=== PATIENT | female | born 1940 | race Caucasian/White ===

== ENCOUNTER 2020-10-23 12:51 | Emergency (ER) | payer OTHER ==
[~2020-10-23] VITALS: Ht 152.4 cm; Wt 68.0 kg
[~2020-10-23 12:51] MED LIST: ANTIVERT25 MG PO; ASPIR 8181 MG PO; ESSENTIAL DAIL1 EACH PO; IBUPROFEN 200200 M1 PO; KLOR-CON 1010 MEQ PO; LOVAZA1000 MG PO; MUCINEX TA600 MG/TA2 PO; ROBITUSSIN10 MG; ROBITUSSIN100 MG/53 PO; SYSTANE ULTRA 010 ML OPHTHALMIC; TRICOR145 MG PO; VITAMIN D1000 UNI1 PO; ZESTORETIC 20-1 EAC2 PO; ZOCOR20 MG PO
[2020-10-23 13:12] LABS: ABSOLUTE NEUTROPHILS 3.1 thou/uL (1.4-8.2); BASOPHILS 0.5 % (0.0-2.0); EOSINOPHILS 0.6 % (0.0-3.0); HEMATOCRIT 42.5 % (37.0-47.0); HEMOGLOBIN 14.2 gm/dL (12.0-15.0); LYMPHOCYTES 23.7 % (24.0-44.0); MCH 31.8 pg (26.0-34.0); MCHC 33.4 g/dL (28.0-37.0); MCV 95.2 fL (80.0-100.0); MONOCYTES 15.4 % (1.0-8.0); PLATELET COUNT 270 thou/uL (150-400); POLYS 59.8 % (36.0-66.0); RBC 4.47 mil/uL (4.20-5.00); RDW 13.5 % (10.5-14.5); WBC 5.1 thou/uL (4.0-11.0)
[2020-10-23 13:14] LABS: POTASSIUM 3.9 mmol/L (3.5-5.1)
[2020-10-23 13:20] LABS: ALBUMIN 3.4 g/dL (3.4-5.0); TOTAL BILIRUBIN 0.5 mg/dL (0.2-1.0); TOTAL PROTEIN 7.8 g/dL (6.4-8.2)
[2020-10-23 13:23] LABS: URINE BILIRUBIN NEGATIVE (Negative); URINE BLOOD NEGATIVE (Negative); URINE CLARITY CLEAR; URINE COLOR YELLOW; URINE GLUCOSE-RANDOM* NEGATIVE (Negative); URINE KETONES NEGATIVE (Negative); URINE LEUKOCYTES-REFLEX NEGATIVE (Negative); URINE NITRITE-REFLEX NEGATIVE (Negative); URINE PROTEIN (DIPSTICK) NEGATIVE (Negative); URINE SPECIFIC GRAVITY 1.015 (1.005-1.035); URINE UROBILINOGEN 0.2 E.U./dl (0.2-1.0)
[2020-10-23 16:00] VITALS: BP 137/71
== END 2020-10-23 17:05 | disposition home or self-care (01) ==
LOC: ER 12:51
PROVIDERS: Emergency Medicine
DX: R09.02 Hypoxemia (principal); I10 Essential (primary) hypertension; E78.5 Hyperlipidemia, unspecified; Z79.82 Long term (current) use of aspirin; Z79.899 Other long term (current) drug therapy; Z79.1 Long term (current) use of non-steroidal anti-inflammatories (NSAID)

== ENCOUNTER 2020-10-26 03:51 | Emergency (ER) | payer OTHER ==
[~2020-10-26] VITALS: Ht 165.1 cm; Wt 54.9 kg
[2020-10-26 04:44] LABS: POTASSIUM 3.8 mmol/L (3.5-5.1)
[2020-10-26 04:50] LABS: ALBUMIN 3.4 g/dL (3.4-5.0); TOTAL BILIRUBIN 0.6 mg/dL (0.2-1.0); TOTAL PROTEIN 7.4 g/dL (6.4-8.2)
[2020-10-26 05:06] LABS: ABSOLUTE NEUTROPHILS 2.1 thou/uL (1.4-8.2); BASOPHILS 0.8 % (0.0-2.0); EOSINOPHILS 0.2 % (0.0-3.0); HEMOGLOBIN 14.9 gm/dL (12.0-15.0); LYMPHOCYTES 26.1 % (24.0-44.0); MCH 32.1 pg (26.0-34.0); MCHC 33.8 g/dL (28.0-37.0); MONOCYTES 13.2 % (1.0-8.0); PLATELET COUNT 255 thou/uL (150-400); POLYS 59.7 % (36.0-66.0); RBC 4.64 mil/uL (4.20-5.00); RDW 13.2 % (10.5-14.5); WBC 3.5 thou/uL (4.0-11.0)
[2020-10-26 08:03] LABS: URINE BILIRUBIN NEGATIVE (Negative); URINE BLOOD NEGATIVE (Negative); URINE CLARITY CLEAR; URINE COLOR YELLOW; URINE GLUCOSE-RANDOM* NEGATIVE (Negative); URINE KETONES NEGATIVE (Negative); URINE LEUKOCYTES-REFLEX NEGATIVE (Negative); URINE NITRITE-REFLEX NEGATIVE (Negative); URINE PROTEIN (DIPSTICK) NEGATIVE (Negative); URINE SPECIFIC GRAVITY 1.015 (1.005-1.035); URINE UROBILINOGEN 0.2 E.U./dl (0.2-1.0)
[2020-10-26 12:00] VITALS: BP 176/70
== END 2020-10-26 15:45 | disposition short-term general hospital (02) ==
LOC: ER 03:51
PROVIDERS: Emergency Medicine
DX: U07.1 COVID-19 (principal); R53.1 Weakness; I10 Essential (primary) hypertension; F79 Unspecified intellectual disabilities; E78.5 Hyperlipidemia, unspecified; Z79.82 Long term (current) use of aspirin; Z79.1 Long term (current) use of non-steroidal anti-inflammatories (NSAID); Z79.899 Other long term (current) drug therapy